=== PATIENT | female | born 1965 | race Caucasian/White ===

== ENCOUNTER → 2020-09-09 | Outpatient (CLI) | payer OTHER ==
[2020-09-09 12:48] LABS: RED BLOOD COUNT 4.63 M/UL (4.00-5.10); WHITE BLOOD COUNT 7.8 K/UL (4.5-11.0)
[2020-09-09 13:24] LABS: BUN/CREATININE RATIO 13 (0-10)
[2020-09-10 09:14] LABS: VITAMIN D, 25-HYDROXY 38.1 ng/mL (30.0-100.0)
[2020-09-10 15:15] LABS: RHEUMATOID ARTHRITIS FACTOR <10.0 IU/mL (0.0-13.9)
== END ==
LOC: RAD 11:18
PROVIDERS: Nurse Practitioner Family
DX: R76.8 Other specified abnormal immunological findings in serum (principal); D89.9 Disorder involving the immune mechanism, unspecified; M25.50 Pain in unspecified joint; M47.812 Spondylosis without myelopathy or radiculopathy, cervical region
CPT/HCPCS: 36415; 72040; 80053; 82550; 82728; 83520; 85025; 85652; 86140; 86431

== ENCOUNTER → 2021-05-23 | Outpatient (CLI) | payer OTHER ==
[~2021-05-23] MED LIST: ESTRADIOL; LIPITOR TAB 2020 MG PO; LISINOPRIL5 MG PO; METHOCARBAMOL500 MG PO; MOBIC15 MG PO; OMEPRAZOLE20 MG PO; SERTRALINE HCL25 MG PO; TYLENOL 8 HOUR650 MG PO; ZYRTEC10 MG PO
[2021-05-23 13:12] LABS: BUN/CREATININE RATIO 11 (0-10)
== END ==
LOC: OPSV2 11:30
PROVIDERS: Orthopaedic Surgery
DX: Z01.812 Encounter for preprocedural laboratory examination (principal); M77.11 Lateral epicondylitis, right elbow; G56.01 Carpal tunnel syndrome, right upper limb
CPT/HCPCS: 36415; 80048

== ENCOUNTER → 2021-06-02 | Day surgery (SDC) | payer OTHER ==
[~2021-06-02] VITALS: Ht 170.2 cm; Wt 89.8 kg
[~2021-06-02] MED LIST changes: +HYDROCODON-ACE1 EAC4 PO
== END | disposition home or self-care (01) ==
LOC: OR 09:15
DX: M77.11 Lateral epicondylitis, right elbow (principal); G56.01 Carpal tunnel syndrome, right upper limb; M19.90 Unspecified osteoarthritis, unspecified site; K21.9 Gastro-esophageal reflux disease without esophagitis; I10 Essential (primary) hypertension; E03.9 Hypothyroidism, unspecified; E78.5 Hyperlipidemia, unspecified; Z87.891 Personal history of nicotine dependence; Z88.0 Allergy status to penicillin; Z20.822 Contact with and (suspected) exposure to COVID-19
CPT/HCPCS: C1713; J0690; J1100; J2250; J2405; J2704; J3010; J7120